=== PATIENT | female | born 1995 | race Caucasian/White ===

== ENCOUNTER 2021-05-31 18:57 | Emergency (ER) | payer SELFPAY ==
[~2021-05-31] VITALS: Ht 152.4 cm; Wt 54.4 kg
[2021-05-31 18:58] VITALS: BP 139/83
== END 2021-06-01 02:31 | disposition left against medical advice (07) ==
LOC: ER 18:57
DX: R11.2 Nausea with vomiting, unspecified (principal); R07.89 Other chest pain; R19.7 Diarrhea, unspecified; Z53.21 Procedure and treatment not carried out due to patient leaving prior to being seen by health care provider
CPT/HCPCS: 93005